=== PATIENT | male | born 1980 | race Caucasian/White ===

== ENCOUNTER 2019-09-27 14:18 | Emergency (ER) | payer OTHER ==
[~2019-09-27] VITALS: Ht 182.9 cm; Wt 93.0 kg
[~2019-09-27 14:18] MED LIST: HYDACE5 PO; MUSCLE RELAXOR; OMEP20ER PO
[2019-09-27 15:35] LABS: BASOPHILS ABSOLUTE AUTO 0.07 K/mm3 (0.00-0.23); BASOPHILS PERCENT AUTO 1 % (0-2); EOSINOPHILS ABSOLUTE AUTO 0.02 K/mm3 (0.00-0.68); EOSINOPHILS PERCENT AUTO 0 % (0-6); Hematocrit 49.3 % (37.0-53.0); Hemoglobin 16.5 g/dL (13.5-17.5); IMMATURE GRAN ABSOLUTE AUTO 0.01 K/mm3 (0.00-0.10); IMMATURE GRAN PERCENT AUTO 0 % (0-1); LYMPHOCYTES ABSOLUTE AUTO 0.82 K/mm3 (0.84-5.20); LYMPHOCYTES PERCENT AUTO 10 % (21-46); MONOCYTES ABSOLUTE AUTO 0.65 K/mm3 (0.16-1.47); MONOCYTES PERCENT AUTO 8 % (4-13); Mean Corpuscular HGB 30.1 pg (26.0-34.0); Mean Corpuscular HGB Conc 33.5 g/dL (31.5-36.5); Mean Corpuscular Volume 90 fL (80-100); Mean Platelet Volume 11.1 fL (9.1-12.4); NEUTROPHILS ABSOLUTE AUTO 6.85 K/mm3 (1.96-9.15); NEUTROPHILS PERCENT AUTO 82 % (41-73); Platelet Count 205 K/mm3 (150-400); RDW Coefficient Variation 12.1 % (11.7-14.2); RDW Standard Deviation 39.8 fL (35.1-46.3); Red Blood Cell Count 5.48 M/mm3 (4.30-5.90); White Blood Cell Count 8.42 K/mm3 (4.00-11.30)
[2019-09-27 15:47] LABS: Alanine Aminotransfer (ALT/SGP 33 U/L (12-78); Albumin, Blood 4.3 g/dL (3.4-5.0); Albumin/Globulin Ratio 1.2 (0.8-1.8); Alk Phos 84 U/L (50-136); Anion Gap 11 mmol/L (6-16); Aspartate Aminotrans (AST/SGOT 23 U/L (12-37); Bilirubin, Total 0.5 mg/dL (0.1-1.0); Blood Urea Nitrogen 12 mg/dL (8-24); Bun/Creatinine Ratio 12.3 (12.0-20.0); CO2, Blood 22 mmol/L (21-32); Calcium, Blood 9.1 mg/dL (8.5-10.1); Chloride, Blood 106 mmol/L (98-108); Creatinine, Blood 0.98 mg/dL (0.60-1.20); Globulin, Blood 3.7 g/dL (2.2-4.0); Glomerular Filtration Rate >60 (60-); Glucose, Blood 109 mg/dL (70-99); Potassium, Blood 3.8 mmol/L (3.5-5.5); Sodium, Blood 139 mmol/L (136-145)
== END 2019-09-27 17:48 | disposition home or self-care (01) ==
LOC: ER 14:18
PROVIDERS: Emergency Medicine
DX: R56.9 Unspecified convulsions (principal)
CPT/HCPCS: 36415; 70450; 80053; 85025; 93005; 93010; 99284-25

== ENCOUNTER → 2023-03-09 | Outpatient (CLI) | payer OTHER ==
[2023-03-10 10:21] LABS: Stool Occult Bld Immuno 1 Negative (NEGATIVE)
== END | disposition home or self-care (01) ==
LOC: LAB 02:30 → LAB SHORT 02:30 → LAB FUT 03-08 16:50
PROVIDERS: Family Medicine
DX: Z12.5 Encounter for screening for malignant neoplasm of prostate (principal); K59.00 Constipation, unspecified; R19.7 Diarrhea, unspecified
CPT/HCPCS: 82653; G0328

== ENCOUNTER 2024-03-31 19:42 | Emergency (ER) | payer OTHER ==
[~2024-03-31] VITALS: Ht 182.9 cm; Wt 93.0 kg
[2024-03-31 19:50] VITALS: BP 127/96
[2024-03-31] MEDS ORDERED: CYCL10 PO (21:58)
[2024-03-31] MEDS ORDERED: Prednisone20 MG PO (21:58)
[2024-03-31] MEDS ORDERED: PredniSONE 20 MG Tab PO ONE (22:00)
[2024-03-31] MEDS ORDERED: Cyclobenzaprine HCl 10 MG Tab PO ONE (22:00)
== END 2024-03-31 22:23 | disposition home or self-care (01) ==
LOC: ER 19:42
DX: S39.012A Strain of muscle, fascia and tendon of lower back, initial encounter (principal); X58.XXXA Exposure to other specified factors, initial encounter
CPT/HCPCS: 72100; 99283-25; A9270; J7512